=== PATIENT | male | born 1995 | race American Indian/Alaskan Native ===

== ENCOUNTER 2021-10-26 03:42 | Emergency (ER) | payer SELFPAY ==
[2021-10-26 03:46] VITALS: BP 116/76
== END 2021-10-26 11:00 | disposition left against medical advice (07) ==
LOC: ED 03:42
DX: J45.909 Unspecified asthma, uncomplicated (principal); Z88.0 Allergy status to penicillin; Z88.8 Allergy status to other drugs, medicaments and biological substances; Z88.2 Allergy status to sulfonamides; Z53.21 Procedure and treatment not carried out due to patient leaving prior to being seen by health care provider

== ENCOUNTER 2021-10-26 10:46 | Emergency (ER) | payer SELFPAY ==
[2021-10-26 11:16] VITALS: BP 109/70
== END 2021-10-26 17:33 | disposition left against medical advice (07) ==
LOC: ED 10:46
DX: R07.89 Other chest pain (principal); Z53.21 Procedure and treatment not carried out due to patient leaving prior to being seen by health care provider